=== PATIENT | male | born 1965 | race Caucasian/White ===

== ENCOUNTER 2016-09-25 18:39 | Emergency (ER) | payer OTHER ==
[~2016-09-25] VITALS: Ht 175.3 cm; Wt 75.1 kg
[~2016-09-25 18:39] MED LIST: ACETAMINOPHEN325 M1 PO; ATORVASTATIN CA20 MG PO; CARBAMAZEPINE200 M1 PO; CLORAZEPATE DI7.5 MG PO; DEPAKOTE ER250 MG PO; DEPAKOTE PO; DEPAKOTE250 MG PO; DEPAKOTE500 MG PO; DIAZEPAM5 MG PO; DIVALPROEX SOD250 M1 PO; GLUCOPHAGE500 MG PO; LAMICTAL100 MG PO; LAMICTAL200 MG PO; LAMOTRIGINE100 MG PO; LAMOTRIGINE200 MG PO; LIPITOR20 MG PO; LISINOPRIL5 MG PO; METFORMIN HCL500 MG PO; OXYCODONE-ACET1 EACH PO; PEN-VEE K,VEET500 MG PO; PERCOCET 5/31 TABLET PO; PERPHENAZINE2 MG PO; PERPHENAZINE4 MG PO; SERTRALINE HCL50 MG PO; TEGRETOL-XR,CA100 MG PO; TEGRETOL-XR,CA200 MG PO; TEGRETOL-XR,CA400 MG PO; TYLENOL REGULA325 MG PO; VALIUM5 MG PO; ZESTRIL,PRINIVIL5 MG PO; ZOLOFT50 M1 PO; ZOLOFT50 MG PO
[2016-09-25 19:27] LABS: HEMATOCRIT 46.5 % (38.0-50.0); MCH 31.1 PG (29.0-34.0); MCHC 34.4 G/DL (30.0-36.0); MCV 90.5 FL (86-99); MEAN PLAT.VOLUME 9.7 uM^3 (9.0-12.4); PLATELET COUNT 201 K/uL (156-360); RBC DIS.WIDTH-CV 12.4 % (11.8-14.6); RBC DIS.WIDTH-SD 40.8 % (39-53); RED BLOOD COUNT 5.14 M/uL (4.00-5.50); WHITE BLOOD COUNT 4.8 K/uL (4.1-10.2)
[2016-09-25 19:35] LABS: CHLORIDE 100 mEq/L (99-109); POTASSIUM 5.3 mEq/L (3.7-5.4); SODIUM 137 mEq/L (136-147)
[2016-09-25 19:37] LABS: GLUCOSE 143 mg/dL (70-99)
[2016-09-25 19:38] LABS: ANION GAP 14 MEQ/L (2-14)
[2016-09-25 19:40] LABS: SERUM ETHYL ALCOHOL < 10 mg/dL
[2016-09-25 19:41] LABS: GFR ESTIMATE (CALCULATED) > 59 mL/min/
[2016-09-25 19:42] LABS: UREA NITROGEN (BUN) 15 mg/dL (9-23)
[2016-09-25 20:53] VITALS: BP 128/90
== END 2016-09-25 20:55 | disposition home or self-care (01) ==
LOC: EME 18:39
PROVIDERS: Emergency Medicine
DX: R45.1 Restlessness and agitation (principal); I10 Essential (primary) hypertension; G40.909 Epilepsy, unspecified, not intractable, without status epilepticus; F79 Unspecified intellectual disabilities
CPT/HCPCS: 80048; 85027; 90837; 99281; 99283; G0480

== ENCOUNTER 2016-10-28 19:09 | Emergency (ER) | payer OTHER ==
[~2016-10-28] VITALS: Ht 170.2 cm; Wt 71.1 kg
[2016-10-28 20:14] LABS: EOSINOPHIL COUNT 0.1 K/uL (0-0.3); HEMATOCRIT 47.5 % (38.0-50.0); IMMATURE GRANULOCYTE (%) 0.4 % (0.0-0.7); IMMATURE GRANULOCYTE COUNT 0.2 K/uL; LYMPHOCYTE COUNT 2.8 K/uL (1.0-2.8); MCH 31.2 PG (29.0-34.0); MCHC 34.5 G/DL (30.0-36.0); MCV 90.3 FL (86-99); MEAN PLAT.VOLUME 9.5 uM^3 (9.0-12.4); MONOCYTE (%) 10.3 % (3-12); MONOCYTE COUNT 0.6 K/uL (0-0.8); NEUTROPHIL (%) 35.7 % (45-76); PLATELET COUNT 247 K/uL (156-360); RBC DIS.WIDTH-CV 12.6 % (11.8-14.6); RBC DIS.WIDTH-SD 41.5 % (39-53); RED BLOOD COUNT 5.26 M/uL (4.00-5.50); WHITE BLOOD COUNT 5.5 K/uL (4.1-10.2)
[2016-10-28 20:25] LABS: CHLORIDE 101 mEq/L (99-109); POTASSIUM 5.5 mEq/L (3.7-5.4); SODIUM 139 mEq/L (136-147)
[2016-10-28 20:27] LABS: GLUCOSE 123 mg/dL (70-99)
[2016-10-28 20:28] LABS: ANION GAP 9 MEQ/L (2-14)
[2016-10-28 20:29] LABS: TOTAL BILIRUBIN 0.2 mg/dL (0.0-1.0)
[2016-10-28 20:31] LABS: ALKALINE PHOSPHATASE 107 IU/L (3-129); GFR ESTIMATE (CALCULATED) > 59 mL/min/
[2016-10-28 20:32] LABS: UREA NITROGEN (BUN) 11 mg/dL (9-23)
[2016-10-28 20:56] LABS: SAMPLE HEMOLYSIS CHECK 0; SAMPLE ICTERIC CHECK 0; SAMPLE LIPEMIA CHECK 0
[2016-10-28 21:21] VITALS: BP 107/54
== END 2016-10-28 21:23 | disposition home or self-care (01) ==
LOC: EME → EDBD 19:09 → EME 21:23
PROVIDERS: Emergency Medicine
DX: G40.909 Epilepsy, unspecified, not intractable, without status epilepticus (principal); S01.511A Laceration without foreign body of lip, initial encounter; W19.XXXA Unspecified fall, initial encounter
CPT/HCPCS: 80053; 80156; 80164; 85025; 99281; 99284; J7030

== ENCOUNTER 2017-01-14 10:57 | Emergency (ER) | payer OTHER ==
[~2017-01-14] VITALS: Ht 165.1 cm; Wt 73.0 kg
[2017-01-14 13:12] LABS: CHLORIDE 100 mEq/L (99-109); POTASSIUM 4.9 mEq/L (3.7-5.4); SODIUM 136 mEq/L (136-147)
[2017-01-14 13:14] LABS: GLUCOSE 103 mg/dL (70-99)
[2017-01-14 13:15] LABS: ANION GAP 13 MEQ/L (2-14)
[2017-01-14 13:18] LABS: GFR ESTIMATE (CALCULATED) > 59 mL/min/
[2017-01-14 13:19] LABS: UREA NITROGEN (BUN) 18 mg/dL (9-23)
[2017-01-14 14:01] VITALS: BP 118/75
== END 2017-01-14 14:10 | disposition home or self-care (01) ==
LOC: EME 10:57
PROVIDERS: Emergency Medicine
DX: G40.909 Epilepsy, unspecified, not intractable, without status epilepticus (principal); W19.XXXA Unspecified fall, initial encounter; F79 Unspecified intellectual disabilities; I10 Essential (primary) hypertension; E78.5 Hyperlipidemia, unspecified; E11.9 Type 2 diabetes mellitus without complications; Z79.84 Long term (current) use of oral hypoglycemic drugs
CPT/HCPCS: 70450; 73080; 80048; 99281; 99284

== ENCOUNTER 2017-07-11 18:09 | Emergency (ER) | payer OTHER ==
[~2017-07-11] VITALS: Ht 170.2 cm; Wt 71.9 kg
[2017-07-11 20:00] LABS: HEMATOCRIT 46.6 % (38.0-50.0); MCHC 33.7 G/DL (30.0-36.0); MCV 91.9 FL (86-99); MEAN PLAT.VOLUME 9.5 uM^3 (9.0-12.4); PLATELET COUNT 243 K/uL (156-360); RBC DIS.WIDTH-CV 12.2 % (11.8-14.6); RBC DIS.WIDTH-SD 40.6 % (39-53); RED BLOOD COUNT 5.07 M/uL (4.00-5.50); WHITE BLOOD COUNT 8.1 K/uL (4.1-10.2)
[2017-07-11 20:19] LABS: ANION GAP 8 MEQ/L (2-14); CHLORIDE 100 MEQ/L (99-109); SAMPLE HEMOLYSIS CHECK 0; SAMPLE ICTERIC CHECK 0; SAMPLE LIPEMIA CHECK 0; SODIUM 138 MEQ/L (136-147)
[2017-07-11 20:24] LABS: GFR ESTIMATE (CALCULATED) > 59 mL/min/; GLUCOSE 117 mg/dL (70-99); UREA NITROGEN (BUN) 19 mg/dL (9-23)
[2017-07-11 20:38] VITALS: BP 116/77
== END 2017-07-11 20:54 | disposition home or self-care (01) ==
LOC: EME 18:09
PROVIDERS: Physician Assistant
DX: G40.909 Epilepsy, unspecified, not intractable, without status epilepticus (principal); T42.76XA Underdosing of unspecified antiepileptic and sedative-hypnotic drugs, initial encounter; Z91.14 Patient's other noncompliance with medication regimen; M54.6 Pain in thoracic spine; I10 Essential (primary) hypertension
CPT/HCPCS: 72070; 80048; 85027; 99281; 99284

== ENCOUNTER 2017-08-29 19:36 | Emergency (ER) | payer OTHER ==
[~2017-08-29] VITALS: Ht 177.8 cm; Wt 74.1 kg
[2017-08-29 22:41] VITALS: BP 120/78
== END 2017-08-29 22:43 | disposition home or self-care (01) ==
LOC: EME 19:36
DX: S00.83XA Contusion of other part of head, initial encounter (principal); G40.909 Epilepsy, unspecified, not intractable, without status epilepticus; S09.90XA Unspecified injury of head, initial encounter; Y09 Assault by unspecified means; I10 Essential (primary) hypertension; F32.9 Major depressive disorder, single episode, unspecified
CPT/HCPCS: 70110; 99281; 99284

== ENCOUNTER → 2017-09-09 | Outpatient (CLI) | payer OTHER ==
[~2017-09-09] MED LIST changes: +DEPAKOTE ER500 MG PO; -DIVALPROEX SOD250 M1 PO; +EAR WAX DROPS15 ML RIGHT EAR; -LAMOTRIGINE100 MG PO; +MOBIC7.5 MG PO; +TRILAFON4 MG PO
== END | disposition home or self-care (01) ==
LOC: AMB 13:39
PROVIDERS: Internal Medicine Gastroenterology
DX: Z12.11 Encounter for screening for malignant neoplasm of colon (principal); K63.5 Polyp of colon; Z86.010 Personal history of colon polyps; K64.8 Other hemorrhoids; F79 Unspecified intellectual disabilities; E11.9 Type 2 diabetes mellitus without complications; I10 Essential (primary) hypertension; G40.909 Epilepsy, unspecified, not intractable, without status epilepticus; G47.30 Sleep apnea, unspecified; Z79.84 Long term (current) use of oral hypoglycemic drugs
CPT/HCPCS: 82948; 88305